=== PATIENT | female | born 1965 | race Caucasian/White ===

== ENCOUNTER 2018-08-27 20:58 | Emergency (ER) | payer BC, SELFPAY ==
[2018-08-27 21:00] VITALS: BP 139/74; PULSE 69; RESP 18; TEMP 36.3; O2SAT 98
[2018-08-27 21:13] VITALS: BP 139/74; PULSE 72; RESP 16; TEMP 36.3; O2SAT 100; BMI 21.2
--- NOTE | 2018-08-27 21:22 | CT_ITS ---
CT abdomen pelvis wo con CLINICAL INDICATION: Right flank pain ITS.REASON: right flank pain ORDERING PHYSICIAN: Vitor Echavarria MD PATIENT AGE: 52 years COMPARISON: None TECHNIQUE: Axial images obtained with sagittal and coronal reformats. All CT scans at the facility use one or more dose reduction, viz: automated exposure control, ma/kV adjustment per patient size (including targeted exams where dose is matched to indication, i.e. head), or iterative reconstruction technique. FINDINGS: Lower thorax: No acute finding ABDOMEN: Liver: No masses or biliary dilatation. Gallbladder: Nondistended. No radio opaque stones. Pancreas: No masses or peripancreatic fluid collections. Spleen: Unremarkable. Adrenals: Unremarkable Kidneys/ureters: No masses. No renal calculi. No hydronephrosis. No perinephric fluid collections. No ureteral dilatation or obvious ureteral calculi. Stomach bowel: There is mild retained colonic feces. Appendix: No evidence of appendicitis. PELVIS: Reproductive: There is fullness in the right adnexal region with suspected 2.7 cm right ovarian cyst. Bladder: Nondistended. No obvious stones or masses. ABDOMEN & PELVIS: Peritoneum: No abnormal fluid collections. No obvious inflammatory changes. No free air. Lymph nodes: No enlarged lymph nodes apparent. Vasculature: No evidence of abdominal aortic aneurysm. No retroperitoneal hemorrhage evident. Bones: No acute fracture IMPRESSION: 1. No acute abdominal or pelvic findings. 2. Fullness in the right adnexal region with 2.7 cm right ovarian cyst suspected
[2018-08-27 21:29] LABS: Microscopic, Urine URINE MICROSCOPIC (MICROSCOPIC)
[2018-08-27 21:32] LABS: Appearance,Urine CLEAR (Clear); Bilirubin,Urine Negative (Negative); Blood, Urine Negative (Negative); Color,Urine YELLOW (Yellow); Glucose,Urine (UA) Negative (Negative); Ketones,Urine Negative (Negative); Leukocyte Esterase,Urine Negative (Negative); Nitrate,Urine Negative (Negative); Protein,Urine Negative (Negative); Specific Gravity, Urine 1.015 (1.005-1.030); Urobilinogen,Urine 0.2 EU/dl (0.2)
[2018-08-27 21:36] LABS: Basophils # 0.1 K/mm3 (0-0.2); Basophils % 0.8 % (0.1-2.0); Eosinophils # 0.2 K/mm3 (0.0-0.4); Eosinophils % 2.3 % (0.1-12.0); Hematocrit 38.1 % (37.0-47.0); Hemoglobin 12.1 g/dL (12.2-16.2); Lymphocytes # 2.2 K/mm3 (0.7-4.5); Lymphocytes % 26.7 % (10-50); Mean Corpuscular HGB Conc 31.9 g/dL (31.8-35.4); Mean Corpuscular Volume 87.8 fl (81-99); Mean Platelet Volume 8.1 fl (7.4-10.4); Monocytes # 0.5 K/mm3 (0.1-1.0); Monocytes % 6.6 % (1.7-9.3); Neutrophils # 5.2 K/mm3 (1.8-7.8); Neutrophils % 63.6 % (37.0-80.0); Platelet Count 311 K/mm3 (142-424); Red Blood Count 4.33 M/mm3 (4.20-5.40); Red Cell Distribution Width 13.5 % (11.5-17.5); White Blood Count 8.1 K/mm3 (4.8-10.8)
[2018-08-27 21:39] LABS: Alanine Aminotransferase 23 U/L (12-78); Albumin Level 3.8 gm/dL (3.4-5.0); Albumin/Globulin Ratio 1.1 (1.1-1.8); Alkaline Phosphatase 100 U/L (46-116); Anion Gap 12.4 mEq/L (5-15); Aspartate Amino Transferase 19 U/L (15-37); Bilirubin,Total 0.2 mg/dL (0.2-1.0); Blood Urea Nitrogen 8 mg/dL (7-18); Calcium 9.1 mg/dL (8.5-10.1); Carbon Dioxide 26 mmol/L (21.0-32.0); Chloride 105 mmol/L (98-107); Creatinine Clearance Estimated 68 mL/min (50-200); Creatinine,Serum 0.85 mg/dL (0.55-1.02); Estimated Glomerular Filt Rate 71 ml/min (>60); GFR (African American) 86 ML/MIN (>60); Globulin 3.5 gm/dl (1.3-3.2); Glucose 88 mg/dL (74-106); Potassium 3.4 mmoL/L (3.5-5.1); Sodium 140 mmol/L (136-145); Total Protein,Serum 7.3 gm/dL (6.4-8.2)
[2018-08-27 21:42] LABS: C-Reactive Protein < 0.2 mg/L (0.0-0.9)
[2018-08-27 21:50] LABS: Amorphous Sediment,Urine 1+ /lpf; Bacteria,Urine Trace /lpf; WBC,Urine Occasional #/hpf (0-3)
--- NOTE | 2018-08-27 22:13 | PC.NURSE ---
pt having a scan done at this time will ck vitals when they return
[2018-08-27 22:16] LABS: Erythrocyte Sedimentation Rate 20 mm/hr (0-20)
--- NOTE | 2018-08-27 23:50 | HMH.EDBACK ---
ED Disposition Clinical Impression: SI (sacroiliac) joint inflammation Disposition: Home, Self-Care Condition on Discharge: Good Instructions: DI for Low Back Pain Additional Instructions: use meds and see pcp for follow up and addt tests Prescriptions: predniSONE [Prednisone 20mg Tab] 20 mg PO BID #10 tab Referrals: Avery Wiseman [Primary Care Provider] - - Critical Care Critical Care Time: No Attestation: On 08/27/18, the high probability of a clinically significant, sudden or life threatening deterioration of the following system(s) required my full and direct attention, intervention and personal management. The time I documented below is in addition to time spent performing reported procedures but includes the following listed in this critical care notation. Medical Decision Making - Medical Records Medical records reviewed: Yes: I reviewed the patient's medical records. - Juanito Inquiry Pt receiving controlled substance: No Vital Signs: 08/27/18 21:00 08/27/18 21:13 Temperature 97.3 F L 97.3 F L Temperature Source Oral Oral Pulse Rate [Right] 69 72 Respiratory Rate 18 16 Blood Pressure [Right Arm] 139/74 139/74 Blood Pressure Mean [Right Arm] 95 95 Blood Pressure Source [Right Arm] Automatic Cuff Automatic Cuff Blood Pressure Position [Right Arm] Supine Sitting 02 Sat by Pulse Oximetry 98 100 Oxygen Delivery Method Room Air Room Air - Lab Data Lab results reviewed: Yes: I reviewed the patient's lab results. Lab Results 08/27/18 21:15: Urine Color Yellow, Urine Appearance Clear, Urine pH 8.0, Ur Specific [place] 1.015, Urine Protein Negative, Urine Glucose (UA) Negative, Urine Ketones Negative, Urine Blood Negative, Urine Nitrate Negative, Urine Bilirubin Negative, Urine Urobilinogen 0.2, Ur Leukocyte Esterase Negative, Urine WBC Occasional, Ur Squamous Epith Cells 5-10, Amorphous Sediment 1+, Urine Bacteria Trace 08/27/18 21:15: WBC 8.1, RBC 4.33, Hgb 12.1 L, Hct 38.1, MCV 87.8, MCH 28.0, MCHC 31.9, RDW 13.5, Plt Count 311, MPV 8.1, Neut % (Auto) 63.6, Lymph % (Auto) 26.7, [place] % (Auto) 6.6, Eos % (Auto) 2.3, Baso % (Auto) 0.8, Neut # (Auto) 5.2, Lymph # (Auto) 2.2, [place] # (Auto) 0.5, Eos # (Auto) 0.2, Baso # (Auto) 0.1, ESR 20 08/27/18 21:15: Sodium 140, Potassium 3.4 L, Chloride 105, Carbon Dioxide 26, Anion Gap 12.4, BUN 8, Creatinine 0.85, Estimated Creat Clear 68, Estimated GFR 71, Est GFR ( Amer) 86, Glucose 88, Calcium 9.1, Total Bilirubin 0.2, AST 19, ALT 23, Alkaline Phosphatase 100, C-Reactive Protein < 0.2, Total Protein 7.3, Albumin 3.8, Globulin 3.5 H, Albumin/Globulin Ratio 1.1 Result diagrams: 08/27/18 21:15 08/27/18 21:15 Orders (Tests/Meds): ED MEDICATIONS Generic Name Dose Route Start Last Admin Trade Name Freq PRN Reason Stop Dose Admin Sodium Chloride 1,000 mls @ 999 mls/hr 08/27/18 21:30 08/27/18 21:29 Sod Chlor 0.9% 1000ml Bag IV 08/27/18 22:30 999 mls/hr .Q1H1M GE Administration Discontinued Medications Generic Name Dose Route Start Last Admin Trade Name Freq PRN Reason Stop Dose Admin Ketorolac Tromethamine 30 mg 08/27/18 21:21 08/27/18 21:29 Toradol 30mg/Ml Vial IV 08/27/18 21:22 30 mg ONCE ONE Administration Methylprednisolone Sodium Succinate 125 mg 08/27/18 21:21 08/27/18 21:29 Solu-Medrol 125mg/2ml Vial IV 08/27/18 21:22 125 mg ONCE ONE Administration ORDERS Category Date Time Status CT abdomen pelvis wo con Stat Cat Scan 08/27/18 21:22 Taken - CT Data CT Scan: Abdomen, Pelvis Time Received: 23:[address] Reviewed: Yes: I have viewed the radiologist's interpretation Preliminary Findings: Normal/NAD Back Pain HPI - General Chief Complaint: Back Pain/Injury Stated Complaint: Hip Pain Time Seen by Provider: 08/27/18 23:50 Mode of Arrival: Ambulatory Source of Information: Patient, Spouse, Medical Record Limitations: No Limitations Description of Symptoms (Recalled from ER Triage
[2018-08-28] VITALS: BP 121/80; PULSE 65; RESP 17; O2SAT 97
[2018-08-28 00:02] VITALS: BP 122/70; PULSE 70; RESP 16; TEMP 36.6; O2SAT 98
== END 2018-08-28 00:04 | disposition home or self-care (01) ==
PROVIDERS: Emergency Provider Emergency Medicine; PCP Internal Medicine
DX: M46.1 Sacroiliitis, not elsewhere classified (principal)
CPT/HCPCS: 74176; 80053; 81001; 85025; 85651; 86140; 96365; 96375; 99284

== ENCOUNTER → 2020-04-12 10:36 | Outpatient (POV) | payer BC, SELFPAY | PROVIDERS: Visit Provider Dermatology | DX: Z00.00 Encounter for general adult medical examination without abnormal findings (principal) ==

== ENCOUNTER 2024-08-13 14:50 | Emergency (ER) | payer BC, SELFPAY ==
[2024-08-13 14:56] VITALS: BP 138/71; PULSE 78; RESP 18; TEMP 36.6; O2SAT 98; BMI 23.8
--- OUTSIDE RECORDS SUMMARY | 2024-08-13 15:05 | XMS_ITS | Data Portability ---
Author Organization [facility] - Julia & [place] ADMIN Address [address] [place] [address] Assessment No assessment recorded. Plan of Treatment Reminders Order Date Submit Date Provider Last Modified By Organization Details Last Modified Time Details Appointments None recorded. Lab None recorded. Referral None recorded. Procedures None recorded. Surgeries None recorded. Imaging MRI, brain, w/wo contrast 2022 023 [facility] (Centralized Scheduling), [address] [place], [address], 3 14:53:10 Medication Orders None recorded. Patient TargetsNo targets recorded. Patient InstructionsNo instructions recorded. Reason for Referral None Reported. Results Created Date Observation Date Name Description Value Unit Range Abnormal Flag Note LastModifiedBy Organization Detail LastModifiedTime 05/08/19 23 05/08/2022 [facility] [address] [place] [address] Phone: Fax: Name: THOMAS, VICTOR MANUEL Exam Date: 023 : 968 Age 56 Gender : F Access ion: [id number] Physic bernie: ALETHA STONE Facili ty: [facility] Facili ty HSV: Outpat ient Exam: MRI BRAIN W/W/O FINAL REPORT TECHNI QUE: Multip lanar and multis equenc e imagin g of the brain was obtain ed before and after contra st admini strati on. CLINIC AL HISTOR Y: Altere d sense of smell x 2 years Headac hes No known trauma 12ccs Multih ance FINDIN GS: The gyri and sulci are within normal limits for age. There is no mass effect or midlin e shift. Signal intens ity is normal . No hydroc ephalu s. The cerebe llum and brains tem have a normal appear ance. There are no areas of restri cted diffus ion on diffus ion weight ed images to sugges t acute infarc t. Soft tissue s are withou t acute abnorm ality. No pathol ogic contra st enhanc ement is identi fied. IMPRES RADHA: No acute intrac ranial abnorm ality and no pathol ogic contra st enhanc ement. Review ed, Interp reted and Dictat ed by Alexis Kraft MD Transc ribed by Bianca wan and Electr onical ly Signed by Alexis Kraft MD on 2022 12:26: 21 PMEAST PATSY Dictat ed By: ALEXIS KRAFT Transc ribed By: Transc ribed On: 023 12:26 PM Electr onical ly signed by: ALEXIS KRAFT 023 Thank you for referr VICTOR MANUEL Santos to [facility]. Legall y fidel wan by ABENA ESPINOZA 05-08 12:26: 21 CC'ed Logic: Orderi ng Provid er: CRYS HARPER Attend ing Provid er: CRYS HARPER Admitt ing Provid er: CRYS HARPER [email or web address] [facility] [address] [facility], [place], [address], 05/15/2022 12:07:27 Result Notes None recorded. Procedures Surgical History Date Name Laterality Status Provider Name and Address Organization Details Recorded Time 3 Nasal Endoscopy completed Deny MONGE [facility] & [place] 04/19/2022 10:42:28 Imaging Results None recorded. Procedure Notes None recorded. Medical Equipment None Reported. Allergies Allergen ID Allergen Name Allergen Category Reaction Reaction Severity Criticality Documentation Date Start Date Code Code System Note Provider Name and Address Organization Details Recorded Time 72734 Macrodant in medicatio n hives Not available high 04/19/202220295 4 RxNorm Mayra Millan [facility] & [place] 3 10:01:29 Medications Name Sig Start Date Stop Date Status Note LastModified by Organization Details LastModified Time doxycycline hyclate 100 mg capsule TAKE 1 CAPSULE BY MOUTH TWICE DAILY 04/19 completed Not Available Not Available Not Available hydrocodone -homatropin e 5 mg-1.5 mg/5 mL oral solution TAKE 5 ML BY MOUTH EVERY 6 HOURS NEEDED 04/19 completed Not Available Not Available Not Available methylpredn isolone 4 mg tablets in a dose pack TAKE BY MOUTH DIRECTED ON INSIDE OF PACKAGE 04/19 completed Not Available Not Available Not Available Proair Digihaler 90 mcg/actuati on aerosol powder breath act, sensor INHALE 1 TO 2 PUFFS EVERY 4 TO 6 HOURS NEEDED 04/19 completed Not Available Not Available Not Available Vitals Date Recorded Body height Body mass index (BMI) Body weight Body temperature Heart rate Systolic blood pressure Diastolic blood pressure Provider Name and Address Organization Details Last Updated DateTime 3 157.48 cm 23.8 kg/m2 83759.0 1 g 97.7 [degF] 70 /min 133 mm[Hg] 65 mm[Hg] Mayra Shelley [facility] & [place] 3 09:57:24 Social History None recorded. Functional Status None recorded. Mental Status None recorded. Family History Nothing Reported. Medical History Condition Response Headaches Migraines Y Gynecological HistoryNo gynecological history recorded. Obstetrics History GPAL:G 0 P 0 0 0 0 Past Encounters Encounter ID Performer Location Encounter Start Date Encounter Closed Date Diagnosis/Indication Diagnosis SNOMED-CT Code Diagnosis ICD10 Code Diagnosis Note [id number] Aletha Stone MD [facility] G -[address] [address] 04/19/2022 09:46:22 04/19/2022 10:31:30 Sense of smell altered 391945255 R43.1 Explained to patient I saw nothing concerning today on nasal endoscopy. I do not see any sign of infection that could be causing this. I would recommend an MRI of the brain for further work up although I did discuss these are generally normal. She would like to proceed with this scan. Recommende d smell therapy with essential oils. Will be in touch with her when we receive the results, sooner if needed. Taste sense altered 2718 60653 R43.2 Alpha-1-an titrypsin deficiency 01975264 E88.01 Health Concerns Section Related Observation LastModified by Organization Detai ls LastModified Time None Recorded Concern Status LastModified by Organization Details LastModified Time None Recorded Advance Directives Directive None Recorded Payers Insurance Date Sequence Insurance Name Policy Number Policy Coyle Covered Member ID Coyle Member ID Guarantor Name 05/14/2022 1 [place] [id number] Victor Manuel Thomas [id number] Victor Manuel Thomas Notes Date Note Type Note Provider Name and Address Organization Details Recorded Time 04/19/2022 text/html 56yo female in the office today to discuss changes in her taste and smell. She reports this has been going on for 2 years. States tastes are bland. States she smells cigarette smoke often/daily. Denies having any viral infections at the time this started. She had an MRI many years ago that showed a cyst in her sinus. She was having migraines at the time. She is not a smoker. Denies any frequent sinus infections. Aletha Stone MD [address], [place], [address], [facility] [place] [facility] [place] & [place] 04/19/2022 14:40:00 OBGyn Episode No OBEpisode recorded.
--- NOTE | 2024-08-13 15:13 | PC.NURSE ---
[facility]
[2024-08-13 15:19] VITALS: BP 135/68; PULSE 75; RESP 14; O2SAT 99
[2024-08-13 15:30] VITALS: BP 133/69; PULSE 73; RESP 21; O2SAT 95
--- NOTE | 2024-08-13 15:39 | HMH.EDGENADL ---
Discharge Plan Disposition Patient Disposition: Home, Self-Care Prescriptions Prescriptions: New amoxicillin-pot clavulanate 875-125 mg tablet 1 tab PO BID Qty: 10 0RF No Action prednisone 20 MG tablet 20 mg PO BID Qty: 10 0RF Referrals Follow up/Referrals: Avery Wiseman [Primary Care Provider, Medical] - See instructions Activity Restrictions/Add. Instructions Additional Instructions/Restrictions: At this time it was felt you are safe to be discharged home. If new or worsening symptoms please do not hesitate to return the emergency department. Please take antibiotics as prescribed and represent to the emergency department on day 3, 7, 14 after your bite to get subsequent rabies vaccines. Clinical Impressions Clinical Impression: Dog bite Instructions Patient Instructions: Animal Bites Print Language Print Language: Kinyarwanda Discharge ED Provider: Gomez Sow General Adult HPI General Chief complaint: Animal Bite Stated complaint: AO 08/13/24 1430, bite to left thumb Time Seen by Provider: 08/13/24 15:07 Mode of Arrival: Ambulatory Source of Information: Patient Description of Symptoms (Recalled from ER Triage Doc. by RN): PT presents for evaluation of a baby coyote bite on left thumb. 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 T-Dap is UTD. Per PT coyote doesnt appear ill. History of Present Illness HPI narrative: Patient is a 58-year-old female with no pertinent past medical history who presents to the emergency department for a cavity bite. 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 Last Tdap 7 to 8 years ago. No other acute complaints at this time. Please note that above description of symptoms, in this electronic medical record under categorization of recalled from ER triage doctor by RN are reflective of an initial nursing assessment, however, is not reflective of my full history and physical exam that was personally taken and clarified. Consequentially, this preceding description of symptoms, which may include the patient's categorized chief complaint in the EMR, do not reflect my personal clinical impression, and the ultimate description of history of present illness and patient stated complaints should be deferred to this section of the note. Unless stated otherwise or congruent with this section of the note, additional signs, symptoms, or incongruence should be interpreted as inaccurate with my clinical impression. Related Data Previous Rx's ?Medication ?Instructions ?Recorded prednisone 20 mg tablet 20 mg PO BID #10 tabs 08/27/18 amoxicillin 875 mg-potassium 1 tab PO BID dog bite #10 tabs 08/13/24 clavulanate 125 mg tablet Allergies Allergy/AdvReac Type Severity Reaction Status Date / Time nitrofurantoin (From Allergy Unknown I-HIVES Unverified 02/26/17 14:21 MACRODANTIN) [facility] Disclaimer: The information contained in this section may have been updated after the patient was seen, as this information can be updated by other users. Social History Smoking Status: Never smoker alcohol intake: never current occupational status: retired Travel in the last 8 weeks?: None Have you lived/traveled outside US in past 30 days?: No Contact w/someone who lives/traveled outside US past 30 days?: No Exposure to someone with infectious disease in past 14 days?: No Do you have a fever (greater than 100.4 F or 38 C)?: No Have you tested positive for COVID-19?: No Exposed to someone with COVID-19 in past 14 days?: No Do you have a sore throat?: No Do you have a cough?: No Do you have any weakness?: No Do you have any diarrhea?: No Are you experiencing any unusual bleeding?: No Do you have any muscle aches/pain?: No Do you have any abdominal pain?: No Are you experiencing loss of taste or smell?: No Other Medical History Have you received the Flu Vaccine for this season: No Have you received the Pneumonia Vaccine: No ROS Obtained: Yes Systems reviewed as appropriate & no additional complaints except as documented Physical Exam General General appearance: alert and in no apparent distress Head Head exam: atraumatic and normocephalic Eye Eye exam: Present PERRL and EOMI ENT ENT exam: Present mucous membranes moist Neck Neck exam: Present normal inspection Chest Chest inspection: Present normal inspection and symmetric chest wall rise Respiratory Respiratory exam: Absent respiratory distress Cardiovascular Cardiovascular exam: Present regular rate and normal rhythm Extremities Exam Extremities exam: Present other (1 cm linear laceration over the dorsal aspect of the left thumb, no exposed tendon, superficial skin wound over the volar aspect of the thumb. Distally neurovascularly intact.) Neurological Exam Neurological exam: Present alert Psychiatric Psychiatric exam: Present normal affect Skin Skin exam: Present warm and dry Medical Decision Making Medical Records Screening: Per USPSTF and CDC recommendations, given the prevalence of disease in our region, it is our hospital?s policy to screen for HIV and viral Hepatitis for all patients aged 18 and over and those with ongoing risk factors. Juanito Inquiry Pt receiving controlled substance: No Vital Signs: 08/13/24 14:56 08/13/24 15:19 Temperature 97.8 F Temperature Source Oral Pulse Rate 75 Pulse Rate [Right] 78 Respiratory Rate 18 14 Blood Pressure 135/68 Blood Pressure [Right Arm] 138/71 Blood Pressure Mean [Right Arm] 93 02 Sat by Pulse Oximetry 98 99 Oxygen Delivery Method Room Air Room Air Orders (Tests/Meds): ED MEDICATIONS Generic Name Dose Route Start Last Admin Trade Name Freq PRN Reason Stop Dose Admin Rabies Immune Globulin 1,170 unit 08/13/24 15:45 Rabies Immune Globulin/Pf 300 Unit/Ml 5ml Vial IM 08/13/24 15:46 ONCE ONE Discontinued Medications Generic Name Dose Route Start Last Admin Trade Name Freq PRN Reason Stop Dose Admin Rabies Vaccine 2.5 unit 08/13/24 15:25 Rabies Vaccine (Pcec)/Pf 2.5 Unit Vial IM 08/13/24 15:26 .ONCE ONE Tetanus/Reduced Diphtheria/Acell Pertussis 0.5 ml 08/13/24 15:25 Tet/Diphth/Pert-Adult 0.5ml Syringe IM 08/13/24 15:26 .ONCE ONE ORDERS Category Date Time Status HIV Combo Stat Lab 08/13/24 15:28 Ordered Hepatitis C Ab Qual. W/ RFX Stat Lab 08/13/24 15:28 Ordered Medical Decision Narrative: In summary patient is a 58-year-old female with past medical history Regan above presents emergency department for evaluation of a dog bite from a cavity. Patient is hemodynamically stable nontoxic-appearing upon arrival, afebrile. Tdap greater than 5 years will be updated, wound will be cleaned with Hibiclens. X-ray was considered however no significant crush injury will be deferred. No concern for retained foreign body. Although a cavity is a dog and is able to be observed patient does not have her rabies vaccine series and there is a relative paucity of data over the carrier rates of rabies in different wild animals including coyote they are theoretical carriers and benefit of vaccine series outweighs the risk. Patient will undergo rabies immunoglobulin and primary vaccine series. Wound was cleaned with Hibiclens will not undergo primary closure given high risk of infection. Patient was given multiple return precautions and will be discharged with a course of Augmentin. Critical Care Critical Care Time Critical Care Time: No
[2024-08-13] MEDS: RABIES VACCINE (PCEC)/PF 2.5 UNIT VIAL IM (15:54)
--- NOTE | 2024-08-13 15:56 | PC.NURSE ---
outpatient order filled out per Dr. Sow, faxed to infusion. Called and spoke with Kalina Olmos RN regarding pt needing to be set up for day 3,7,14 injections. pt updated on POC.
[2024-08-13] MEDS: RABIES IMMUNE GLOBULIN/PF 300 UNIT/ML 5ML VIAL 1170 UNIT IM (15:57)
[2024-08-13] MEDS: TET/DIPHTH/PERT-ADULT 0.5ML SYRINGE 0.5 ML IM (15:58)
[2024-08-13 16:00] VITALS: BP 126/74; RESP 16
[2024-08-13 16:09] VITALS: BP 126/74; PULSE 67; RESP 16; TEMP 36.7; O2SAT 98
== END 2024-08-13 16:11 | disposition home or self-care (01) ==
PROVIDERS: Emergency Provider Emergency Medicine; PCP Internal Medicine
DX: S61.052A Open bite of left thumb without damage to nail, initial encounter (principal); W55.81XA Bitten by other mammals, initial encounter; Z23 Encounter for immunization
CPT/HCPCS: 90375; 90471; 90472; 90675; 90715; 96372; 99284

== ENCOUNTER 2024-08-17 11:21 | Outpatient (CLI) | payer BC, SELFPAY ==
[2024-08-17] MEDS: RABIES VACCINE (PCEC)/PF 2.5 UNIT VIAL IM (11:47)
[2024-08-17 11:55] VITALS: BP 127/93; PULSE 69; RESP 18; TEMP 36.6; O2SAT 100
== END 2024-08-17 12:05 | disposition home or self-care (01) ==
PROVIDERS: PCP Internal Medicine; Visit Provider Emergency Medicine
DX: Z23 Encounter for immunization (principal); S61.052A Open bite of left thumb without damage to nail, initial encounter
CPT/HCPCS: 90675; 96372

== ENCOUNTER 2024-08-24 15:50 | Outpatient (CLI) | payer BC, SELFPAY ==
--- OUTSIDE RECORDS SUMMARY | 2024-08-24 15:54 | XMS_ITS | Data Portability ---
Author Organization [facility] - Julia & [place] ADMIN Address [address] [place] [address] Assessment No assessment recorded. Plan of Treatment Reminders Order Date Submit Date Provider Last Modified By Organization Details Last Modified Time Details Appointments None recorded. Lab None recorded. Referral None recorded. Procedures None recorded. Surgeries None recorded. Imaging MRI, brain, w/wo contrast 2022 023 [facility] (Centralized Scheduling), [address] [place], [address], 3 14:53:10 Medication Orders None recorded. Patient TargetsNo targets recorded. Patient InstructionsNo instructions recorded. Reason for Referral None Reported. Results Created Date Observation Date Name Description Value Unit Range Abnormal Flag Note LastModifiedBy Organization Detail LastModifiedTime 05/08/19 23 05/08/2022 [facility] [address] [place] [address] Phone: Fax: Name: THOMAS, VICTOR MANUEL Exam Date: 023 : 968 Age 56 Gender : F Access ion: [id number] Physic bernie: ALETHA STONE Facili ty: [facility] Facili ty HSV: Outpat ient Exam: MRI [...] you for referr VICTOR MANUEL Santos to [facility]. Legall y fidel wan by ABENA ESPINOZA 05-08 12:26: 21 CC'ed Logic: Orderi ng Provid er: CRYS HARPER Attend ing Provid er: CRYS HARPER Admitt ing Provid er: CRYS HARPER [email or web address] [facility] [address] [facility], [place], [address], 05/15/2022 12:07:27 Result Notes None recorded. Procedures Surgical History Date Name Laterality Status Provider Name and Address Organization Details Recorded Time 3 Nasal Endoscopy completed Deny RICO [facility] & [place] 04/19/2022 10:42:28 Imaging Results None recorded. Procedure Notes None recorded. Medical Equipment None Reported. Allergies Allergen ID Allergen Name Allergen Category Reaction Reaction Severity Criticality Documentation Date Start Date Code Code System Note Provider Name and Address Organization Details Recorded Time 03692 Macrodant in medicatio n hives Not available high 04/19/202220295 4 RxNorm Mayra Millan [facility] & [place] 3 10:01:29 Medications Name Sig Start Date [...] Updated DateTime 3 157.48 cm 23.8 kg/m2 24634.0 1 g 97.7 [degF] 70 /min 133 mm[Hg] 65 mm[Hg] Mayra Shelley [facility] & [place] 3 09:57:24 Social History None recorded. Functional Status None recorded. Mental Status None recorded. Family History Nothing Reported. Medical History Condition Response Headaches Migraines Y Gynecological HistoryNo gynecological history recorded. Obstetrics History GPAL:G 0 P 0 0 0 0 Past Encounters Encounter ID Performer Location Encounter Start Date Encounter Closed Date Diagnosis/Indication Diagnosis SNOMED-CT Code Diagnosis ICD10 Code Diagnosis Note [id number] Aletha Stone MD [facility] G -[address] [address] 04/19/2022 09:46:22 04/19/2022 10:31:30 Sense of smell altered 800414315 R43.1 Explained to patient I saw nothing [...] sooner if needed. Taste sense altered 2718 01891 R43.2 Alpha-1-an titrypsin deficiency 59311798 E88.01 Health Concerns Section Related Observation LastModified by Organization Detai ls LastModified Time None Recorded Concern Status LastModified by Organization Details LastModified Time None Recorded Advance Directives Directive None Recorded Payers Insurance Date Sequence Insurance Name Policy Number Policy Coyle Covered Member ID Coyle Member ID Guarantor Name 05/14/2022 1 [place] [id number] Victor Manuel Thomas [id number] Victor Manuel Thomas Notes Date Note [...] any frequent sinus infections. Aletha Stone MD [address], [place], [address], [facility] - [place] - [place] & [place] 04/19/2022 14:40:00 OBGyn Episode No OBEpisode recorded.
[2024-08-24 16:03] VITALS: BP 130/68; PULSE 71; RESP 18; TEMP 36.6; O2SAT 100
[2024-08-24] MEDS: RABIES VACCINE (PCEC)/PF 2.5 UNIT VIAL IM (16:04)
== END 2024-08-24 16:10 | disposition home or self-care (01) ==
LOC: INF 15:52
PROVIDERS: PCP Internal Medicine; Visit Provider Emergency Medicine
DX: S61.052A Open bite of left thumb without damage to nail, initial encounter (principal); Z23 Encounter for immunization
CPT/HCPCS: 90675; 96372